=== PATIENT | female | born 1975 | race African-American/Black ===

== ENCOUNTER 2018-08-27 18:50 | Emergency (ER) | payer OTHER ==
[~2018-08-27 18:50] MED LIST: HUMALOG100 UNIT/1; KEFLEX500 MG PO; LANTUS SUBQ; NORCO 5-325 TA1 EACH PO
[2018-08-27 18:51] VITALS: BP 184/76
[2018-08-27 19:33] LABS: ALBUMIN 3.5 g/dL (3.4-5.0); CALCIUM 9.3 mg/dL (8.5-10.1); CREATININE 1.3 mg/dL (0.6-1.0); TOTAL BILIRUBIN 0.4 mg/dL (<0.1-1.0); TOTAL PROTEIN 7.3 g/dL (6.4-8.2)
[2018-08-27 19:35] LABS: POTASSIUM 5.1 mmol/L (3.5-5.1)
[2018-08-28] MEDS ORDERED: LISINOPRIL40 MG PO (19:27)
[2018-08-28] MEDS ORDERED: ATORVASTATIN CA40 MG PO (19:27)
[2018-08-28] MEDS ORDERED: KEFLEX500 M1 PO (21:47)
== END 2018-08-27 19:45 | disposition home or self-care (01) ==
LOC: ER 18:50
PROVIDERS: Physician Assistant
DX: E11.65 Type 2 diabetes mellitus with hyperglycemia (principal); R10.30 Lower abdominal pain, unspecified; R06.02 Shortness of breath; M79.604 Pain in right leg; M79.605 Pain in left leg; Z79.4 Long term (current) use of insulin

== ENCOUNTER 2018-08-28 18:53 | Emergency (ER) | payer OTHER ==
[~2018-08-28] VITALS: Ht 170.2 cm; Wt 147.4 kg
[2018-08-28 19:19] LABS: BE(vivo) 0 mmol/L (-2 to +3); HCO3 24.9 mmol/L (22.0-26.0); PCO2 VENOUS 41.7 mmHg (41.0-51.0); PO2 VENOUS 45.5 mmHg (35.0-45.0)
[2018-08-28 19:26] LABS: HEMATOCRIT 37.7 % (37.0-47.0); HEMOGLOBIN 12.4 gm/dL (12.0-15.0); MCH 31.3 pg (26.0-34.0); MCV 94.8 fL (80.0-100.0); RBC 3.97 mil/uL (4.20-5.00); RDW 14.4 % (10.5-14.5); WBC 10.5 thou/uL (4.0-11.0)
[2018-08-28] MEDS ORDERED: LISINOPRIL40 MG PO (19:27)
[2018-08-28] MEDS ORDERED: ATORVASTATIN CA40 MG PO (19:27)
[2018-08-28 19:45] LABS: ANION GAP 7 mmol/L (7-16); BUN 25 mg/dL (7-18); CALCIUM 9.4 mg/dL (8.5-10.1); CHLORIDE 103 mmol/L (98-107); CO2 26 mmol/L (21-32); CREATININE 1.5 mg/dL (0.6-1.0); LIPASE 180 U/L (73-393); POTASSIUM 4.5 mmol/L (3.5-5.1); SGOT 18 U/L (15-37); SGPT 40 U/L (30-65); SODIUM 136 mmol/L (136-145); TOTAL BILIRUBIN 0.3 mg/dL (<0.1-1.0); TOTAL PROTEIN 7.4 g/dL (6.4-8.2); TROPONIN-I <0.06 ng/mL (<0.06)
[2018-08-28 19:51] LABS: GLUCOSE 544 mg/dL (74-106)
[2018-08-28 20:30] LABS: URINE BILIRUBIN NEGATIVE (Negative); URINE BLOOD 3+ (Negative); URINE CLARITY SL CLOUDY; URINE COLOR YELLOW; URINE GLUCOSE-RANDOM* 3+ (Negative); URINE KETONES NEGATIVE (Negative); URINE PROTEIN (DIPSTICK) 1+ (Negative); URINE SPECIFIC GRAVITY <= 1.005 (1.005-1.035); URINE UROBILINOGEN 0.2 E.U./dl (0.2-1.0)
[2018-08-28 20:31] LABS: URINE LEUKOCYTES-REFLEX 1+ (Negative); URINE NITRITE-REFLEX POSITIVE (Negative)
[2018-08-28 20:39] LABS: CASTS None Seen /LPF (None Seen); CRYSTALS None Seen /LPF (None Seen); SQUAMOUS 4-10 Moderate /LPF (0-3); URINE WBC-REFLEX >25 Many /HPF (0-5); WBC CLUMPS Moderate (None Seen)
[2018-08-28 21:17] VITALS: BP 173/89
[2018-08-28] MEDS ORDERED: KEFLEX500 M1 PO (21:47)
--- NOTE | 2018-08-29 16:53 | EKG ---
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1975 Requested By: Kiara Ceballos Order Number: [id number] MD: Yung Sagastume Measurements Intervals [place] Rate: 88 P: 48 [place]: 138 QRS: -30 QRSD: 89 T: 23 QT: 357 QTc: 432 Interpretive Statements Sinus rhythm Left axis deviation No previous ECG available for comparison Electronically Signed On 08-29-2018 16:52:51 CDT by Yung Sagastume [email or web address] ��������������������������������������������� <ELECTRONICALLY SIGNED> ���������������������������������������� By: Yung Sagastume MD ��������������������������������������������� 08/29/18 1652 09 09 Yung Sagastume MD /TRISH
== END 2018-08-28 22:26 | disposition home or self-care (01) ==
LOC: ER 18:53
PROVIDERS: Student in an Organized Health Care Education/Training Program
DX: N39.0 Urinary tract infection, site not specified (principal); E11.65 Type 2 diabetes mellitus with hyperglycemia; F17.210 Nicotine dependence, cigarettes, uncomplicated; Z79.4 Long term (current) use of insulin

== ENCOUNTER 2018-11-09 05:54 | Emergency (ER) | payer OTHER ==
[~2018-11-09] VITALS: Ht 170.2 cm; Wt 131.5 kg
[~2018-11-09 05:54] MED LIST changes: +ATORVASTATIN CA40 MG PO; -HUMALOG100 UNIT/1; +HUMALOG100 UNIT/1 SUBQ; +KEFLEX500 M1 PO; +LISINOPRIL40 MG PO
[2018-11-09 08:02] LABS: ABSOLUTE NEUTROPHILS 6.2 thou/uL (1.4-8.2); BASOPHILS 0.5 % (0.0-2.0); EOSINOPHILS 2.4 % (0.0-3.0); HEMATOCRIT 28.9 % (37.0-47.0); HEMOGLOBIN 9.3 gm/dL (12.0-15.0); LYMPHOCYTES 28.7 % (24.0-44.0); MCH 31.3 pg (26.0-34.0); MCHC 32.3 g/dL (28.0-37.0); MCV 96.9 fL (80.0-100.0); MONOCYTES 7.7 % (1.0-8.0); PLATELET COUNT 664 thou/uL (150-400); POLYS 60.7 % (36.0-66.0); RBC 2.98 mil/uL (4.20-5.00); RDW 14.9 % (10.5-14.5); WBC 10.3 thou/uL (4.0-11.0)
[2018-11-09 08:10] LABS: ANION GAP 9 mmol/L (7-16); BUN 28 mg/dL (7-18); CHLORIDE 105 mmol/L (98-107); CO2 24 mmol/L (21-32); CREATININE 1.5 mg/dL (0.6-1.0); GLUCOSE 132 mg/dL (74-106); POTASSIUM 4.8 mmol/L (3.5-5.1); SODIUM 138 mmol/L (136-145)
[2018-11-09 08:30] LABS: LIPASE 173 U/L (73-393); PHOSPHORUS 4.2 mg/dL (2.5-4.9); SGOT 49 U/L (15-37); SGPT 83 U/L (30-65); TOTAL BILIRUBIN 0.2 mg/dL (<0.1-1.0); TOTAL PROTEIN 7.3 g/dL (6.4-8.2); TROPONIN-I <0.06 ng/mL (<0.06)
[2018-11-09 08:32] LABS: ALBUMIN 2.7 g/dL (3.4-5.0); MAGNESIUM 1.5 mg/dL (1.8-2.4)
[2018-11-09 08:48] LABS: URINE BILIRUBIN NEGATIVE (Negative); URINE BLOOD 1+ (Negative); URINE CLARITY CLEAR; URINE COLOR YELLOW; URINE GLUCOSE-RANDOM* NEGATIVE (Negative); URINE KETONES NEGATIVE (Negative); URINE LEUKOCYTES-REFLEX 2+ (Negative); URINE NITRITE-REFLEX NEGATIVE (Negative); URINE PROTEIN (DIPSTICK) 1+ (Negative); URINE SPECIFIC GRAVITY 1.015 (1.005-1.035); URINE UROBILINOGEN 0.2 E.U./dl (0.2-1.0)
[2018-11-09 08:59] LABS: BACTERIA-REFLEX None Seen /HPF (None Seen); CASTS None Seen /LPF (None Seen); CRYSTALS None Seen /LPF (None Seen); SQUAMOUS 4-10 Moderate /LPF (0-3); URINE RBC 3-10 Few /HPF (0-2)
[2018-11-09 10:42] LABS: APTT 30.6 Seconds (24.5-32.8); PROTIME 10.4 Seconds (9.3-11.4)
[2018-11-09] MEDS ORDERED: LASIX 40 MG TAB40 M2 PO (11:23)
[2018-11-09] MEDS ORDERED: FLAGYL500 M1 PO (11:23)
[2018-11-09 11:43] VITALS: BP 152/70
--- NOTE | 2018-11-11 08:49 | EKG ---
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1975 Requested By: Carlos A Jain Order Number: [id number] MD: Junaid Lundy Measurements Intervals [place] Rate: 74 P: 47 PA: 140 QRS: -13 QRSD: 91 T: 9 QT: 404 QTc: 449 Interpretive Statements Sinus rhythm Normal tracing Compared to ECG 08/28/2018 19:10:14 Left-axis deviation no longer present Electronically Signed On 11-11-2018 8:49:27 CDT by Junaid Lundy [email or web address] ��������������������������������������������� <ELECTRONICALLY SIGNED> ���������������������������������������� By: Junaid Lundy MD, [facility] ��������������������������������������������� 11/11/18 0849 0837 6 Junaid Lundy MD, FACC /EPI
== END 2018-11-09 11:45 | disposition home or self-care (01) ==
LOC: ER 05:54
PROVIDERS: Emergency Medicine
DX: R06.02 Shortness of breath (principal); R09.89 Other specified symptoms and signs involving the circulatory and respiratory systems; A59.9 Trichomoniasis, unspecified; E11.9 Type 2 diabetes mellitus without complications; I10 Essential (primary) hypertension; F17.210 Nicotine dependence, cigarettes, uncomplicated; Z79.4 Long term (current) use of insulin

== ENCOUNTER 2019-04-07 07:27 | Emergency (ER) | payer OTHER ==
[~2019-04-07] VITALS: Ht 170.2 cm; Wt 132.9 kg
[~2019-04-07 07:27] MED LIST changes: +FLAGYL500 M1 PO; +LASIX 40 MG TAB40 M2 PO
[2019-04-07] MEDS ORDERED: NORVASC5 M1 PO (07:37)
[2019-04-07 08:25] LABS: BASOPHILS 1.1 % (0.0-2.0); EOSINOPHILS 0.5 % (0.0-3.0); HEMATOCRIT 34.9 % (37.0-47.0); HEMOGLOBIN 11.2 gm/dL (12.0-15.0); LYMPHOCYTES 27.6 % (24.0-44.0); MCH 30.1 pg (26.0-34.0); MCHC 32.1 g/dL (28.0-37.0); MCV 93.5 fL (80.0-100.0); MONOCYTES 7.7 % (1.0-8.0); PLATELET COUNT 457 thou/uL (150-400); POLYS 63.1 % (36.0-66.0); RBC 3.74 mil/uL (4.20-5.00); RDW 14.3 % (10.5-14.5); WBC 12.7 thou/uL (4.0-11.0)
[2019-04-07 08:38] LABS: PROTIME 10.2 Seconds (9.3-11.4)
[2019-04-07 08:45] LABS: ANION GAP 10 mmol/L (7-16); BUN 31 mg/dL (7-18); CALCIUM 9.6 mg/dL (8.5-10.1); CHLORIDE 99 mmol/L (98-107); CO2 24 mmol/L (21-32); CREATININE 1.6 mg/dL (0.6-1.0); GLUCOSE 361 mg/dL (74-106); POTASSIUM 4.4 mmol/L (3.5-5.1); SODIUM 133 mmol/L (136-145)
[2019-04-07 08:54] LABS: URINE BILIRUBIN NEGATIVE (Negative); URINE BLOOD 2+ (Negative); URINE CLARITY CLEAR; URINE COLOR YELLOW; URINE GLUCOSE-RANDOM* 3+ (Negative); URINE KETONES NEGATIVE (Negative); URINE NITRITE-REFLEX NEGATIVE (Negative); URINE PROTEIN (DIPSTICK) 2+ (Negative); URINE SPECIFIC GRAVITY 1.025 (1.005-1.035); URINE UROBILINOGEN 0.2 E.U./dl (0.2-1.0)
[2019-04-07 08:56] LABS: ALBUMIN 3.5 g/dL (3.4-5.0); SGOT 13 U/L (15-37); SGPT 30 U/L (30-65); TOTAL BILIRUBIN 0.4 mg/dL (<0.1-1.0); TOTAL PROTEIN 8.4 g/dL (6.4-8.2); TROPONIN-I <0.06 ng/mL (<0.06)
[2019-04-07 08:57] LABS: URINE LEUKOCYTES-REFLEX 2+ (Negative)
[2019-04-07 09:05] LABS: AMP/METHAMP Negative (Negative); BARBITURATES Negative (Negative); BENZODIAZEPINES Negative (Negative); COCAINE POSITIVE (Negative); METHADONE Negative (Negative); OPIATES Negative (Negative); PCP POSITIVE (Negative)
[2019-04-07 09:06] LABS: BACTERIA-REFLEX >30 Many /HPF (None Seen); CASTS None Seen /LPF (None Seen); CRYSTALS None Seen /LPF (None Seen); SQUAMOUS >10 Many /LPF (0-3); URINE WBC-REFLEX >25 Many /HPF (0-5)
[2019-04-07 09:07] LABS: URINE RBC 3-10 Few /HPF (0-2)
[2019-04-07 16:34] VITALS: BP 131/61
--- NOTE | 2019-04-10 12:55 | EKG ---
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[place] : 1975 Requested By: Carlos A Jain Order Number: [id number] MD: Yung Sagastume Measurements Intervals [place] Rate: 93 P: 61 [place]: 149 QRS: -24 QRSD: 94 T: 34 QT: 364 QTc: 453 Interpretive Statements Sinus rhythm LAE, consider biatrial enlargement Borderline left axis deviation Compared to ECG 11/09/2018 08:37:29 No significant changes Electronically Signed On 04-10-2019 12:54:41 REEL WINDER by Yung Sagastume [email or web address] <ELECTRONICALLY SIGNED> By: Yung Sagastume MD 04/10/19 1254 6 6 Yung Sagastume MD /TRISH
== END 2019-04-07 16:36 | disposition short-term general hospital (02) ==
LOC: ER 07:27
PROVIDERS: Emergency Medicine
DX: S30.0XXA Contusion of lower back and pelvis, initial encounter (principal); R45.851 Suicidal ideations; F32.9 Major depressive disorder, single episode, unspecified; F15.10 Other stimulant abuse, uncomplicated; N39.0 Urinary tract infection, site not specified; E11.22 Type 2 diabetes mellitus with diabetic chronic kidney disease; I12.9 Hypertensive chronic kidney disease with stage 1 through stage 4 chronic kidney disease, or unspecified chronic kidney disease; N18.9 Chronic kidney disease, unspecified; F17.210 Nicotine dependence, cigarettes, uncomplicated; Z91.041 Radiographic dye allergy status; Z91.018 Allergy to other foods; Z79.4 Long term (current) use of insulin; W01.0XXA Fall on same level from slipping, tripping and stumbling without subsequent striking against object, initial encounter; Y92.89 Other specified places as the place of occurrence of the external cause; Y93.89 Activity, other specified; Y99.8 Other external cause status